=== PATIENT | female | born 1945 | race Caucasian/White ===

== ENCOUNTER 2022-08-14 16:24 | Emergency (ER) | payer MEDICARE, OTHER ==
[2022-08-14 16:53] VITALS: BP 123/52
[2022-08-14 17:00] VITALS: BP 124/55
[2022-08-14 17:15] VITALS: BP 113/56
[2022-08-14 17:30] VITALS: BP 130/59
[2022-08-14] MEDS ORDERED: ZYRTEC10 MG PO (17:41)
[2022-08-14] MEDS ORDERED: PAXLOVID PO (17:41)
[2022-08-14] MEDS ORDERED: FLOXIN OTIC0.3 % AD (17:41)
[2022-08-14 17:46] VITALS: BP 135/47
[2022-08-14 17:48] VITALS: BP 135/47
== END 2022-08-14 17:58 | disposition home or self-care (01) ==
LOC: ED 16:24
DX: U07.1 COVID-19 (principal); H60.91 Unspecified otitis externa, right ear; R05.9 Cough, unspecified; R09.81 Nasal congestion; Z85.3 Personal history of malignant neoplasm of breast; Z86.718 Personal history of other venous thrombosis and embolism